=== PATIENT | female | born 1990 | race Two or more races ===

== ENCOUNTER → 2025-08-06 | Outpatient (CLI) | payer BC, SELFPAY ==
[2025-08-06 09:23] LABS: Collection Type, Urine Clean Catch; RBC,Urine 0 /hpf (0-3); WBC,Urine 0 /hpf (0-5)
[2025-08-06 09:55] LABS: Basophils # (Auto) 0.0 Thou/mm3 (0.0-0.2); Basophils % (Auto) 0 % (0-2.5); Eosinophils # (Auto) 0.1 Thou/mm3 (0.0-0.5); Eosinophils % (Auto) 1 % (0-10); Hematocrit 39.3 % (36.0-46.0); Hemoglobin 13.1 g/dL (12.0-16.0); Immature Granulocytes Auto 0.02 Thou/mm3 (0.00-0.00); Lymphocytes # (Auto) 2.5 Thou/mm3 (1.0-4.8); Lymphocytes % (Auto) 31 % (10-50); Mean Corpuscular HGB Conc 33.3 g/dl (31.0-37.0); Mean Corpuscular Hemoglobin 29.9 pg (25.0-35.0); Mean Corpuscular Volume 90 fL (80-100); Monocytes # (Auto) 0.5 Thou/mm3 (0.0-0.8); Monocytes % (Auto) 6 % (0-12); Neutrophils # (Auto) 5.1 Thou/mm3 (1.8-7.7); Neutrophils % (Auto) 62 % (37-80); Nucleated Red Blood Cell # 0.00 Thou/mm3 (0.00-0.00); Nucleated Red Blood Cell % 0 /100 WBC (0); Platelet Count 252 Thou/mm3 (140-440); RDW Standard Deviation 43.8 fL (36.4-46.3); Red Blood Count 4.38 Miln/mm3 (4.00-5.20); White Blood Count 8.3 Thou/mm3 (3.6-11.0)
[2025-08-06 10:04] LABS: Glucose Estimated Average 105 mg/dL (80-131); Hemoglobin A1C 5.3 % Hgb (4.8-6.0)
[2025-08-06 10:08] LABS: Bacteria,Urine Rare; Bilirubin,Urine Negative (Negative); Blood,Urine Negative (Negative); Clarity,Urine Clear (Clear/Hazy); Color,Urine Lt-Yellow (Lt Yel-Yel); Culture Indicated,Urine Not Indicated; Glucose, Urine Negative (Negative); Ketones,Urine Negative (Negative); Leukocyte Esterase,Urine Negative (Negative); Nitrite,Urine Negative (Negative); PH,Urine 6.0 (5.0-7.0); Protein,Urine Negative (Neg - Trace); Specific Gravity,Urine 1.013 (1.001-1.035); Squamous Epithelial Cell,Urine 4 /hpf (0-5); Urobilinogen,Urine Negative mg/dL (0.0-1.0)
[2025-08-06 10:12] LABS: Alanine Aminotransferase 20 U/L (10-49); Albumin, Serum 4.6 gm/dL (3.5-5.0); Albumin/Globulin Ratio 1.6 (1.2-2.2); Alkaline Phosphatase 67 U/L (46-116); Anion Gap 10 (7-16); Aspartate Amino Transferase 18 U/L (0-34); BUN/Creatinine Ratio 13 Ratio (12-20); Bilirubin,Total 0.5 mg/dL (0.3-1.2); Blood Urea Nitrogen 9 mg/dL (9-23); Calcium 9.6 mg/dL (8.3-10.6); Calcium (Corrected) 9.6 mg/dL (8.5-10.1); Carbon Dioxide 26.3 mMol/L (20.0-31.0); Cardiac Risk Estimate 3.0 RATIO (3.7-5.6); Chloride 103 mMol/L (98-107); Cholesterol 145 mg/dL (132-200); Creatinine (Component) 0.7 mg/dL (0.6-1.3); Globulin 2.8 gm/dL (2.3-3.5); Glucose 84 mg/dL (74-106); HDL Cholesterol 49 mg/dL (40-60); LDL Cholesterol,Calculated 78 mg/dL (0-130); Osmolality,Calculated 275 (275-295); Potassium 4.1 mMol/L (3.4-5.1); Sodium 139 mMol/L (136-145); Thyroid Stimulating Hormone 2.42 uIU/mL (0.55-4.78); Total Protein 7.4 gm/dL (5.7-8.2); Triglycerides 91 mg/dL (30-150); eGFR > 60 See Note
[2025-08-06 10:16] LABS: Vitamin B12 710 pg/mL (211-911); Vitamin D 25 Hydroxy Total 37.4 ng/mL (7.3-40.2)
== END | disposition home or self-care (01) ==
LOC: COPL 08:49
PROVIDERS: PCP Nurse Practitioner Family; Referring Provider Nurse Practitioner Family; Visit Provider Nurse Practitioner Family
DX: Z00.00 Encounter for general adult medical examination without abnormal findings (principal); D51.9 Vitamin B12 deficiency anemia, unspecified; E55.9 Vitamin D deficiency, unspecified
CPT/HCPCS: 36415; 80053; 80061; 81001; 82306; 82607; 83036; 84443; 85025

== ENCOUNTER 2025-10-14 08:41 | Inpatient (IN) | payer BC, SELFPAY ==
[2025-10-14 09:01] VITALS: BP 111/61; PULSE 66; RESP 18; TEMP 36.8; O2SAT 97; BMI 37.0
[2025-10-14 09:50] LABS: Lactate (Lactic Acid) 0.9 mMol/L (0.4-2.0)
[2025-10-14 09:51] LABS: Basophils # (Auto) 0.0 Thou/mm3 (0.0-0.2); Basophils % (Auto) 0 % (0-2.5); Eosinophils # (Auto) 0.2 Thou/mm3 (0.0-0.5); Eosinophils % (Auto) 2 % (0-10); Hematocrit 39.0 % (36.0-46.0); Hemoglobin 12.8 g/dL (12.0-16.0); Immature Granulocytes Auto 0.03 Thou/mm3 (0.00-0.00); Lymphocytes # (Auto) 2.7 Thou/mm3 (1.0-4.8); Lymphocytes % (Auto) 25 % (10-50); Mean Corpuscular HGB Conc 32.8 g/dl (31.0-37.0); Mean Corpuscular Hemoglobin 30.0 pg (25.0-35.0); Mean Corpuscular Volume 92 fL (80-100); Monocytes # (Auto) 0.6 Thou/mm3 (0.0-0.8); Monocytes % (Auto) 6 % (0-12); Neutrophils # (Auto) 7.2 Thou/mm3 (1.8-7.7); Neutrophils % (Auto) 67 % (37-80); Nucleated Red Blood Cell # 0.00 Thou/mm3 (0.00-0.00); Nucleated Red Blood Cell % 0 /100 WBC (0); Platelet Count 300 Thou/mm3 (140-440); RDW Standard Deviation 44.2 fL (36.4-46.3); Red Blood Count 4.26 Miln/mm3 (4.00-5.20); White Blood Count 10.8 Thou/mm3 (3.6-11.0)
[2025-10-14 10:13] LABS: Alanine Aminotransferase 13 U/L (10-49); Albumin, Serum 4.5 gm/dL (3.5-5.0); Albumin/Globulin Ratio 1.7 (1.2-2.2); Alkaline Phosphatase 64 U/L (46-116); Anion Gap 10 (7-16); Aspartate Amino Transferase 17 U/L (0-34); BUN/Creatinine Ratio 15 Ratio (12-20); Bilirubin,Total 0.4 mg/dL (0.3-1.2); Blood Urea Nitrogen 12 mg/dL (9-23); Calcium 9.1 mg/dL (8.3-10.6); Calcium (Corrected) 9.1 mg/dL (8.5-10.1); Carbon Dioxide 24.4 mMol/L (20.0-31.0); Chloride 107 mMol/L (98-107); Creatinine (Component) 0.8 mg/dL (0.6-1.3); Estimated Creatinine Clearance 108.5 mL/min (>60); Globulin 2.7 gm/dL (2.3-3.5); Glucose 101 mg/dL (74-106); Osmolality,Calculated 280 (275-295); Potassium 4.4 mMol/L (3.4-5.1); Sodium 141 mMol/L (136-145); Total Protein 7.2 gm/dL (5.7-8.2); eGFR > 60 See Note
--- NOTE | 2025-10-14 10:48 | EDNOTE_ITS ---
ED General RME/HPI General Chief complaint: General Adult/Misc Complain Stated complaint: REDNESS TO L) BREAST, FEVER Time Seen by Provider: 10/14/25 08:59 Arrival date/time: 10/14/25 08:41 RME / HPI RME / HPI narrative: 35-year-old female presents with a left breast abscess persisting for approximately 3 weeks without improvement. Over the past 1 week, she has experienced chills, low-grade fevers, and mild body aches, with chills con tinuing. She denies other acute symptoms. Prior to arrival, she was treated with oral trimethoprim-sulfamethoxazole for 1 week without improvement, followed by intramuscular ceftriaxone initiated 3 days ago and cephalexin started yesterday. She was sent for further evaluation due to lack of response to outpatient oral antibiotics. Related Data Home Medications ?Medication ?Instructions ?Recorded ?Confirmed vit no.95-ferrous 1 tab PO QDAY 09/06/2409/26 fumarate 28 mg-folic acid 800 mcg tablet () Previous Rx's ?Medication ?Instructions ?Recorded docusate sodium 100 mg capsule 100 mg PO BID #60 caps 10/12/24 (Colace) ibuprofen 800 mg tablet 800 mg PO Q6H PRN pain #120 tabs 10/12/24 lanolin 50 % topical ointment 1 applic topical TID PRN skin 10/12/24 irritation #15 tubes Allergies Allergy/AdvReac Type Severity Reaction Status Date / Time piperacillin (From Zosyn) Allergy Mild rash Verified 10/14/25 14:38 tazobactam (From Zosyn) Allergy Mild rash Verified 10/14/25 14:38 Review of Systems Review of Systems Systems Reviewed: All systems reviewed, normal except as documented Past Medical History Past Medical History GASTROINTESTINAL: Positive Gastrointestinal Disorders, Gall Bladder Disease and Obesity REPRODUCTIVE: Positive Previous Pregnancies (X3) HEMATOLOGIC: Positive Anemia (DURING THIS , TAKES PO IRON.) OTHER HISTORY: Positive Hospitalization and Chicken Pox Family History FAMILY HISTORY: Positive Family Cardiac Disorders (SISTER AND MOTHER (HTN)) and Family Surgery (MOTHER,SISTER,FATHER) Social History SMOKING STATUS: Never smoker SECOND HAND EXPOSURE: No ED Exam Narrative Physical exam: General: Not toxic in appearance. Eyes: Appear normal with no scleral icterus. HENT: Normocephalic, atraumatic. Neck: Atraumatic, supple. Cardiac: Regular rate and rhythm, no murmurs. Respiratory: Lungs clear to auscultation bilaterally. Skin: Left breast with abscess at areola level and adjacent area at 3 o'clock position; fluctuance and induration; erythema extending approximately 5?7 cm. Psychological: Cooperative and participatory with examination. Course Course Course Narrative: 1120h: Spoke w Dr. Vieira (surgery) regarding pt for consult. He will see pt in ED. 1152h: Dr. Vieira evaluated the patient in the ED. He recommends admission and IV abx. He plans to drain after patient has received antibiotics, most likley tomorrow. 1210h: I spoke with hospitalist team B for admission. Quality Measures none Orders Category Date Time Status Insert IV NOW Care 10/14/25 09:31 Active US breast LT complete Stat Exams 10/14/25 12:05 Completed CBC Stat Lab 10/14/25 09:43 Completed CMP [Comprehensive Metabolic Panel] Stat Lab 10/14/25 09:43 Completed Lactate (Lactic Acid) Stat Lab 10/14/25 09:43 Completed cefTRIAXone [Rocephin] 2 gm Med 10/14/25 12:10 Discontinued SODIUM CHLORIDE 0.9% (Popper) [Ns 0.9% (P)] 50 ml IV X1 Vital Signs Vital signs: Vital Signs Temperature 98.2 F 10/14/25 09:01 Pulse Rate 66 10/14/25 09:01 Respiratory Rate 18 10/14/25 09:01 Blood Pressure 111/61 10/14/25 09:01 Pulse Oximetry (%) 97 10/14/25 09:01 Oxygen Delivery Method Room Air 10/14/25 09:01 Pulse ox is 97% on room air which is adequate. Discharge Plan Plan Patient Disposition: Admit Acute Care w/in Hospital Problem List Clinical Impression: Breast abscess MDM Narrative MDM hospital course (for use when minimal MDM required): Alona Hu am scribing for and in the presence of Dr. Medley. Clinical Information Provided by: patient Medical Records reviewed [facility] [place] Meds/Rx considered, not ordered None Labs/Rad/Tests considered, not ordered None Chronic Illness/Social Conditions which may negatively complicate care or outcome(s)-explain: None or not applicable EKG EKG not done Labs Labs: see narrative above Imaging Imaging interpretation: none Medication Administration(s) Medication Administration History Acetaminophen (Acetaminophen 325 Mg Tablet) 650 mg PO Q6H PRN PRN Reason: Fever >100.4 and Pain 1-3 Stop: 11/13/25 13:20 Vancomycin HCl/Dextrose (Vancomycin/D5w 1500 Mg Ivpb) 300 mls @ 300 mls/hr IV Q12HR@1000,2200 MINDY; Protocol Stop: 10/21/25 21:59 Clindamycin/Sodium Chloride (Cleocin/Ns Ivpb) 600 mg in 50 mls @ 100 mls/hr IV Q8HR MINDY Stop: 10/21/25 15:17 Last Admin: 10/14/25 16:20 Dose: 100 mls/hr Documented By: DRE Oxycodone/Acetaminophen (Oxycodone/Apap 5/325 Tablet) 1 tab PO Q6H PRN PRN Reason: PAIN SCALE 4-10(Mod-Sev Stop: 10/19/25 13:20 Pharmacy Consult (Vancomycin Pharmacy To Dose 1 Each Each) 1 each IV QDAY MINDY Stop: 11/13/25 13:29 Last Admin: 10/14/25 14:47 Dose: Not Given Documented By: MG Non-Admin Reason: pharmacy Sennosides (Senna Tablet) 1 tab PO QDAY PRN; Protocol PRN Reason: constipation Stop: 11/13/25 13:20 Discontinued Medications Diphenhydramine HCl (Diphenhydramine Inj 50 Mg/Ml Vial) 12.5 mg IVP X1 ONE Stop: 10/14/25 14:35 Last Admin: 10/14/25 14:39 Dose: 12.5 mg Documented By: JACLYN Ceftriaxone Sodium 2 gm/ (Sodium Chloride) 50 mls @ 100 mls/hr IV X1 ONE Stop: 10/14/25 12:39 Last Infusion: 10/14/25 13:22 Dose: Infused Documented By: Admin: 10/14/25 12:37 Dose: 100 mls/hr Documented By: JACLYN Piperacillin Sod/Tazobactam (Sod 4.5 gm/ Sodium Chloride) 100 mls @ 200 mls/hr IV Q8HR MINDY; Protocol Stop: 10/21/25 13:59 Last Infusion: 10/14/25 14:44 Dose: 0 mls/hr Documented By: Admin: 10/14/25 14:14 Dose: 200 mls/hr Documented By: JACLYN Vancomycin/Sodium Chloride (Vancomycin/Ns 1 Gm Ivpb) 200 mls @ 200 mls/hr IV X1 MINDY Stop: 10/14/25 15:30 See above Diagnosis Diagnoses ruled out and/or further discussions: Breast abscess
[2025-10-14 10:52] VITALS: BP 117/79; PULSE 70; RESP 18; TEMP 36.7; O2SAT 98
--- NOTE | 2025-10-14 12:00 | PD.SURCONS ---
HPI Consult details Consult date: 10/14/25 Reason for consultation narrative: The patient was seen in consultation because of abscess over the left breast History of present illness: History of present illness revealed that the patient developed this swelling about 3 weeks ago and it was diagnosed as an abscess and given antibiotics first with Bactrim and then with Keflex. For the past 3 days patient has been receiving intramuscular Rocephin. According to the patient it has slowed down the redness over the past. But the patient still has low-grade fever and pain and has started draining some of the nipple area. Patient denies having any such problem in the past except for years ago she had an infection on the left side of the breast which was treated with packing. She denies any major medical illness or immunosuppression. Patient has 3 children 100% is not lactating. 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 Past Medical History Past Medical History NEUROLOGIC: Negative Neurological Disorders or Seizures CARDIAC: Negative Cardiac Disorders, Congestive Heart Failure, Edema, Cellulitis or Varicose Veins RESPIRATORY: Negative Chronic Obstructive Pulmonary Disease (COPD) or Tuberculosis GASTROINTESTINAL: Positive Gastrointestinal Disorders, Gall Bladder Disease and Obesity; Negative Hepatitis GENITOURINARY: Negative Genitourinary Disorders or Renal Disease REPRODUCTIVE: Positive Previous Pregnancies (X3); Negative Endometriosis, Genital Herpes, Gonorrhea, Pelvic Inflammatory Disease, Syphilis or Uterine Prolapse MUSCULOSKELETAL: Negative Musculoskeletal Disorders ENDOCRINE: Negative Endocrine Disorders, Diabetes Mellitus Type 1 or Diabetes Mellitus Type 2 HEMATOLOGIC: Positive Anemia (DURING THIS , TAKES PO IRON.); Negative Blood Disorders OTHER HISTORY: Positive Hospitalization and Chicken Pox; Negative Autoimmune Disease, Shingles, Falls, Blood Transfusions, Blood Transfusion Reaction, Anesthesia Reactions, Organ Transplant, Chemotherapy, Radiation Therapy, Hyperbaric Therapy, MRSA, VRSA, Human Immunodeficiency Virus (HIV), Measles, Mumps, Rubella ([place]an Measles), Pertussis, Clostridium Difficile or Cancer Family History FAMILY HISTORY: Positive Family Cardiac Disorders (SISTER AND MOTHER (HTN)) and Family Surgery (MOTHER,SISTER,FATHER); Negative Family Psychiatric Problems, Family Respiratory Disorders, Family Gastrointestinal Problems, Family Cancer or Family Anesthesia Reaction Surgical History SURGICAL: Negative Pacemaker, Section or Organ Transplant Social History SMOKING STATUS: Never smoker SECOND HAND EXPOSURE: No Meds Home Medications and Allergies Home Medications ?Medication ?Instructions ?Recorded ?Confirmed ?Type vit no.95-ferrous 1 tab PO QDAY 09/06/24 10/12/24 History fumarate 28 mg-folic acid 800 mcg tablet () Allergies Allergy/AdvReac Type Severity Reaction Status Date / Time No Known Allergies Allergy Verified 10/14/25 08:46 Exam Vital Signs Temp Pulse Resp BP Pulse Ox O2 Del Method 98.1 F 70 18 117/79 98 Room Air 10/14/25 10:52 10/14/25 10:52 10/14/25 10:52 10/14/25 10:52 10/14/25 10:52 10/14/25 10:52 Narrative Exam Physical examination revealed a slightly white female who is 5 feet 3 inches tall weighing 209 pounds. Her vital signs are normal Routine Chest/Breast/Axilla Exam Comments: Examination of the breast showed large breasts on both sides. On the left side patient has diffuse cellulitis all around the areola as well as in the posterior of the breast in the upper portion. Patient also has a fluctuation at the areola on the left side. She said she started draining some on the right side of the nipple. Patient has hidradenitis of the left axilla and which has been treated with antibiotic in the past. Routine Respiratory Exam Comments: Normal limits Routine Cardiovascular Exam Comments: Within normal limits Routine Abdominal Exam Comments: Deferred Routine Rectal Exam Comments: Deferred Results Results: Laboratory Laboratory Narrative: Patient's laboratory workup showed no leukocytosis Assessment & Plan Additional Assessment Additional comments: Pression: Left breast abscess not responding to outpatient treatment Mild obesity Plan Plan: I advised the patient to undergo IV antibiotics and then may require incision and drainage by open surgery. We shall order an ultrasound to find out the extent of the abscess. With an IV antibiotics the cellulitis will improve and it may localized to just an abscess which could be even be aspirated rather than drained by surgery.
--- NOTE | 2025-10-14 12:05 | XR_ITS ---
Examination: Breast ultrasound, unilateral, left Date and time of exam: October 14, 2025, 1225 hours INDICATIONS: Left retroareolar breast abscess 3 weeks post antibiotic therapy, retroareolar nodule 1.5 x 1.8 x 1.0 cm on breast sonogram October 17, 2011 Technique: Real-time holly scale ultrasonographic imaging performed left breast including all 4 quadrants as well as nipple retroareolar and axillary region. Findings: Retroareolar 3:00 hypoechoic mass, 3.8 x 1.9 x 4.1 cm IMPRESSION: Findings most consistent with large breast abscess as above Follow-up sonographic images strongly recommended to document resolution
[2025-10-14] MEDS: cefTRIAXone 2 GM in SODIUM CHLORIDE 0.9% (Popper) 50 ML IV (12:37)
--- NOTE | 2025-10-14 13:40 | ESHP_ITS ---
<Statement entered by Ramakrishna Foster MD - 10/15/25 05:50> Patient was seen and examined at bedside. I agree on the assessment and plan on this note as documented by resident Dr Noreen Bobby DO PGY1. 35-year-old female with past medical history of hidradenitis suppurativa with self resolving abscesses in the past and depression who presented to [facility] emergency department with a chief complaint of left breast abscess which is fluctuant. Patient does report history of multiple small abscesses in the past requiring no surgical drainage. Only other home medication reported is sertraline and ibuprofen as needed, denies any trauma to the area. Patient was evaluated by general surgery who is planning source control with I&D versus discussion with interventional radiology for drainage. Ultrasound did show greater alveolar hypoechoic 3.8 and 1.9 to 4.1 cm abscess. Patient failed outpatient antibiotic therapy with Rocephin Bactrim and Keflex, we will start patient on clindamycin, initially Zosyn was started however patient had rash for which patient was given Benadryl. Will follow-up with general surgery. Case discussed with attending Dr. Micheline Foster MD PGY-2 Documentation for date of: 10/14/25 HPI History of Present Illness History of present illness: A 35-year-old female with past medical history of Hidradenitis suppurativa presents with left breast abscess x 3 weeks on antibiotics without improvement. Admitted for left breast abscess. Patient reported left abscess for the past 3 weeks, was treated with Bactrim for 1 week, Rocephin for 4 days, and Keflex for 1 day without improvement. Reported fever at home to 101. ?Patient follow-up outpatient with her doctor who suggested patient coming into hospital due to redness spread above marker.? Patient reported history of abscess on the same breast 6 years ago, no antibiotics needed, abscess drained and resolved on its own. Reported purulent drainage from small abscess on areolar, no drainage on big abscess.? Patient?s last time breast-feeding was 7 months ago, no problems at that time.? Reported no new aggravation, trauma to the breast. Denied sweat, antibiotics reaction.? Denied tobacco, drug use. ?Admitted to social alcohol use. ?No family history of breast cancer, cervical cancer in sister. ?No past surgical history. ED: Labs: WBC 10.8 within normal limit Imaging: Breast US showed Retroareolar 3:00 hypoechoic mass, 3.8 x 1.9 x 4.1 cm Meds: Rocephin 2 g Consult: Surgery, Dr. Carson, consulted, appreciate recs. Review of Systems Review of Systems Systems Reviewed: All systems reviewed, normal except as documented Narrative Review of Systems: GENERAL APPEARANCE: awake and oriented x 3, well-developed, well-nourished HEENT: Normocephalic, atraumatic; pupils equal, round, reactive to light; EOMI; mucous membranes pink, moist; oropharynx clear NECK: Supple, large neck circumference LUNGS: Clear to auscultation bilaterally, breath sound equal bilaterally HEART: Tachycardia; normal S1, S2; no murmur ABDOMEN: No tenderness to palpation; normal BS; soft, no guarding, no rebound. NEUROLOGIC: awake; alert and oriented x3; cranial nerves II-XII grossly intact; no focal sensory or motor deficits PSYCHIATRIC: appropriate mood and affect SKIN: 3:00 2cm from left areolar 3 x 4 cm fluctuant mass with scab over, no drainage, 11:00 on left areolar 0.5 x 0.5 cm fluctuant mass, no drainage. ?Erythema and induration 20 x 15 cm lateral to left areolar, peau d'orange with some peeling of the skin, tenderness to palpation.? Multiple hyperpigmented scars on left armpit and 2 hyperpigmented scars under left breast. ?No rash at the breast fold. Exam Vital Signs Temp Pulse Resp BP Pulse Ox O2 Del Method 98.1 F 70 18 117/79 98 Room Air 10/14/25 10:52 10/14/25 10:52 10/14/25 10:52 10/14/25 10:52 10/14/25 10:52 10/14/25 10:52 Narrative Exam GENERAL APPEARANCE: awake and oriented x 3, well-developed, well-nourished HEENT: Normocephalic, atraumatic; pupils equal, round, reactive to light; EOMI; mucous membranes pink, moist; oropharynx clear NECK: Supple, large neck circumference LUNGS: Clear to auscultation bilaterally, breath sound equal bilaterally HEART: Tachycardia; normal S1, S2; no murmur ABDOMEN: No tenderness to palpation; normal BS; soft, no guarding, no rebound. NEUROLOGIC: awake; alert and oriented x3; cranial nerves II-XII grossly intact; no focal sensory or motor deficits PSYCHIATRIC: appropriate mood and affect SKIN: 3:00 2cm from left areolar 3 x 4 cm fluctuant mass with scab over, no drainage, 11:00 on left areolar 0.5 x 0.5 cm fluctuant mass, no drainage. ?Erythema and induration 20 x 15 cm lateral to left areolar, peau d'orange with some peeling of the skin, tenderness to palpation.? Multiple hyperpigmented scars on left armpit and 2 hyperpigmented scars under left breast. ?No rash at the breast fold. Results: Labs 10/15/25 04:24 10/15/25 04:24 Labs: Short CBC 10/14/25 Range/Units 09:43 WBC 10.8 (3.6-11.0) Thou/mm3 Hgb 12.8 (12.0-16.0) g/dL Hct 39.0 (36.0-46.0) % Plt Count 300 (140-440) Thou/mm3 BMP 10/14/25 09:43 Sodium 141 Potassium 4.4 Chloride 107 Carbon Dioxide 24.4 BUN 12 Creatinine 0.8 Glucose 101 Calcium 9.1 Liver Function 10/14/25 Range/Units 09:43 Total Bilirubin 0.4 (0.3-1.2) mg/dL AST 17 (0-34) U/L ALT 13 (10-49) U/L Alkaline Phosphatase 64 (46-116) U/L Albumin 4.5 (3.5-5.0) gm/dL Quality Measures Quality Measures VTE prophylaxis and none Medications Home Medications and Allergies Home Medications ?Medication ?Instructions ?Recorded ?Confirmed ?Type sertraline 50 mg tablet 50 mg PO HS 10/14/25 5 History Allergies Allergy/AdvReac Type Severity Reaction Status Date / Time hydromorphone (From Dilaudid) Allergy Intermediate Hives Verified 10/15/25 11:30 piperacillin (From Zosyn) Allergy Mild rash Verified 10/14/25 14:38 tazobactam (From Zosyn) Allergy Mild rash Verified 10/14/25 14:38 Visit Medications Acetaminophen (Acetaminophen 325 Mg Tablet) 650 mg PO Q6H PRN PRN Reason: Fever >100.4 and Pain 1-3 Stop: 11/13/25 13:20 Piperacillin Sod/Tazobactam (Sod 4.5 gm/ Sodium Chloride) 100 mls @ 200 mls/hr IV Q8HR MINDY; Protocol Stop: 10/21/25 13:59 Oxycodone/Acetaminophen (Oxycodone/Apap 5/325 Tablet) 1 tab PO Q6H PRN PRN Reason: PAIN SCALE 4-10(Mod-Sev Stop: 10/19/25 13:20 Pharmacy Consult (Vancomycin Pharmacy To Dose 1 Each Each) 1 each IV QDAY MINDY Stop: 11/13/25 13:29 Sennosides (Senna Tablet) 1 tab PO QDAY PRN; Protocol PRN Reason: constipation Stop: 11/13/25 13:20 Discontinued Medications Ceftriaxone Sodium 2 gm/ (Sodium Chloride) 50 mls @ 100 mls/hr IV X1 ONE Stop: 10/14/25 12:39 Last Infusion: 10/14/25 13:22 Dose: Infused Assessment & Plan Plan A 35-year-old female with past medical history of Hidradenitis suppurativa presents with left breast abscess x 3 weeks on antibiotics (Bactrim for 1 week, Rocephin for 4 days, and Keflex for 1 day) without improvement. Admitted for left breast abscess. History of abscess on the same breast 6 years ago, no antibiotics needed, abscess drained and resolved on its own. ?Reported purulent drainage from small abscess on areolar, no drainage on big abscess.? No new aggravation, trauma to the breast. # Left Breast Abscess # Hidradenitis suppurativa #History of left breast abscess #Outpatient treatment failure Left breast abscess x 3 weeks on antibiotics (Bactrim for 1 week, Rocephin for 4 days, and Keflex for 1 day) without improvement. Breast US showed Retroareolar 3:00 hypoechoic mass, 3.8 x 1.9 x 4.1 cm. No leukocytosis. Remote fever of 101 at home. Had a reaction with Zosyn in ED, hives. Plan: - Pending blood culture - Start Vancomycin - Discontinue Zosyn - Start Clindamycin - Consult surgery, Dr. Carson, appreciate recs - Plan for I&D and wound culture - Adjust antibiotics according to wound culture Health Maintenance: Code status: Full DVT prophylaxis: None GI prophylaxis: None Diet: NPO Herrera: None Lines: PIV Supplemental O2: None Disposition: [facility] bed Assessment and plan discussed with my attending physician Dr. Avery and Dr. Foster (PGY-2). Dr. Bobby (PGY-1) ? residential insurance inspector Attending Provider Attestation/Addendum I have seen and examined the patient. I was physically present for the ta portions of the services provided including history, physical exam, diagnosis, treatment plans and orders. I agree with assessment and plan of care as documented by residents. After examination of the patient and review of the clinical data I feel that this patient needs admission to the hospital for further treatment/evaluation. Patient is a 35 years old female with past medical history of hidradenitis suppurativa and depression who presented to the ED with complaint of left breast abscess for 3 weeks. Patient has received outpatient antibiotic therapy with Bactrim, Keflex and Rocephin. The antibiotic therapy has not provided her relief and her swelling and pain has been worsening. Patient had stopped breast-feeding last 7 months ago without issues. States that she has some purulent drainage and a small amount from smaller abscess around areola. In the ED, vital signs and lab results were within normal limits. Has redness around left breast with fluctuant mass, warmth, erythema and induration present around. Also noted to have hyperpigmented scars from previous lesions secondary to hidradenitis suppurativa. Patient was seen by general surgery in the ED, recommended IV antibiotics and evaluation for possible I&D. We will admit the patient for management of left breast abscess in setting of outpatient treatment failure. Try to start patient on broad-spectrum IV antibiotics, patient became allergic to Zosyn with rashes. We will start her on clindamycin instead. We will obtain blood culture. We will keep her n.p.o. after midnight in anticipation of I&D tomorrow. Even though this this note was carefully revised there may still be minor errors in gear hobber operator due to voice recognition software. Micheline Avery MD
--- NOTE | 2025-10-14 14:04 | PC.SS ---
This EXCAVATOR OPERATOR research program intern went to patient bedside and completed initial assessment. Patient is alert and oriented x3, she was able to complete initial assessment. Patient is a full code with no POA or advanced directive in place. Patient was able to confirm home address [address] [place] [address] and telephone number [phone], her emergency contact and surrogate decision maker is her spouse Kyle Fuentes [phone]. Patient primary physician is Dr. Rashmi Castañeda at Dr. Ludmila De Leon's office in [place]. Patient uses [facility] [address] as her pharmacy. Patient is currently employed and able to complete all ADL's at home with no difficulty. She denies needing any DME when she returns home. Patient states she will need MD note to excuse her from work. Patient will transport herself home once she is discharged.
--- NOTE | 2025-10-14 14:10 | PC.CC ---
1410-Pt is requesting note for work purposes. Assigned RN Rashmi is aware of the request.
[2025-10-14] MEDS: PIPER/TAZO INJ 4.5 GM in SODIUM CHLORIDE 0.9% (POP) 100 ML IV (14:14)
[2025-10-14 14:31] VITALS: PULSE 80; RESP 97
--- NOTE | 2025-10-14 14:34 | PC.NURSE ---
Spoke to Provider Cristian. pt getting hives around china and body starting to get inchy and throat feels sratchy after starting zosyn. provider will order benadryl and to hold off on vanco for now
[2025-10-14] MEDS: CLINDAMYCIN/NS 600 MG IVPB 600 MG/50 ML BAG 100 MG IV ×2 (16:20→21:02)
[2025-10-14 16:35] VITALS: BP 124/66; PULSE 66; RESP 16; TEMP 36.2; O2SAT 96
[2025-10-14 16:45] VITALS: BMI 202.3
[2025-10-14 20:00] VITALS: BP 111/61; PULSE 80; RESP 16; TEMP 36.6; O2SAT 98
[2025-10-14 20:26] VITALS: BMI 34.7
[2025-10-14] MEDS: SERTRALINE HCL 25 MG TABLET 50 MG PO (21:03)
[2025-10-14 23:45] VITALS: PULSE 67; RESP 20; RESP 97
[2025-10-15] VITALS (14 sets, daily range): BP systolic 93–133; BP diastolic 60–80; PULSE 60–102; RESP 14–97; TEMP 36.1–36.5; O2SAT 94–99
[2025-10-15] MEDS: CLINDAMYCIN/NS 600 MG IVPB 600 MG/50 ML BAG 100 MG IV ×3 (05:20→21:26)
[2025-10-15 05:48] LABS: INR 1.0 (0.9-1.3); Partial Thromboplastin Time 29.2 Seconds (22.0-36.0); Prothrombin Time 10.9 Seconds (9.0-12.2)
[2025-10-15 05:50] LABS: Basophils # (Auto) 0.0 Thou/mm3 (0.0-0.2); Basophils % (Auto) 0 % (0-2.5); Eosinophils # (Auto) 0.2 Thou/mm3 (0.0-0.5); Eosinophils % (Auto) 2 % (0-10); Hematocrit 37.4 % (36.0-46.0); Hemoglobin 12.1 g/dL (12.0-16.0); Immature Granulocytes Auto 0.05 Thou/mm3 (0.00-0.00); Lymphocytes # (Auto) 2.1 Thou/mm3 (1.0-4.8); Lymphocytes % (Auto) 21 % (10-50); Mean Corpuscular HGB Conc 32.4 g/dl (31.0-37.0); Mean Corpuscular Hemoglobin 29.8 pg (25.0-35.0); Mean Corpuscular Volume 92 fL (80-100); Monocytes # (Auto) 0.7 Thou/mm3 (0.0-0.8); Monocytes % (Auto) 7 % (0-12); Neutrophils # (Auto) 6.8 Thou/mm3 (1.8-7.7); Neutrophils % (Auto) 69 % (37-80); Nucleated Red Blood Cell # 0.00 Thou/mm3 (0.00-0.00); Nucleated Red Blood Cell % 0 /100 WBC (0); Platelet Count 274 Thou/mm3 (140-440); RDW Standard Deviation 43.2 fL (36.4-46.3); Red Blood Count 4.06 Miln/mm3 (4.00-5.20); White Blood Count 9.8 Thou/mm3 (3.6-11.0)
[2025-10-15 05:55] LABS: Alanine Aminotransferase 15 U/L (10-49); Albumin, Serum 4.0 gm/dL (3.5-5.0); Albumin/Globulin Ratio 1.6 (1.2-2.2); Alkaline Phosphatase 59 U/L (46-116); Anion Gap 8 (7-16); Aspartate Amino Transferase 17 U/L (0-34); BUN/Creatinine Ratio 16 Ratio (12-20); Bilirubin,Total 0.4 mg/dL (0.3-1.2); Blood Urea Nitrogen 11 mg/dL (9-23); Calcium 8.2 mg/dL (8.3-10.6); Calcium (Corrected) 8.2 mg/dL (8.5-10.1); Carbon Dioxide 27.4 mMol/L (20.0-31.0); Chloride 106 mMol/L (98-107); Creatinine (Component) 0.7 mg/dL (0.6-1.3); Estimated Creatinine Clearance 119.8 mL/min (>60); Globulin 2.5 gm/dL (2.3-3.5); Glucose 107 mg/dL (74-106); Osmolality,Calculated 280 (275-295); Potassium 4.6 mMol/L (3.4-5.1); Sodium 141 mMol/L (136-145); Total Protein 6.5 gm/dL (5.7-8.2); eGFR > 60 See Note
[2025-10-15] MEDS: HYDROmorphone INJ 2 MG/ML VIAL 1 MG IVP (09:45)
--- NOTE | 2025-10-15 11:30 | PC.NURSE ---
Called to Dr. Avery and made aware that pt. appears to be experiencing an allergic reaction after dilaudid was given. comes to bedside and orders IV benadryl 50 mg IV x1. Pt. denies swelling to mouth and/or throat, denies dry cough. Pt. complains primarily of ithciness with redness and hives generalized. Pt. given IV benardyl. Surgery RN made aware of new allergy and allergy added to pt. chart.
--- NOTE | 2025-10-15 13:35 | PC.NURSE ---
Dr. Bobby aware pt. does not have HCG level and due to age pt. needs this done before surgery. orders test
[2025-10-15 13:49] LABS: HCG,Qualitative Serum Negative
--- NOTE | 2025-10-15 14:07 | ESPR_ITS ---
<Statement entered by Fransico Zurita MD - 10/15/25 18:56> Patient seen and examined at bedside. I discussed and supervised with the resident intern physician who took care of this patient. I personally saw and examined the patient. I agree with most of the assessment and plan. Abscess ruptured this morning. Patient taken for I&D. Gave dilauded, allergic reaction with hives and itching over face, improved with benadryl. Plan of care discussed with attending Dr. Avery. Fransico Zurita MD PGY-2 Documentation for date of: 10/15/25 Subjective Subjective Interval history: Patient reported ruptured her abscess in the shower this morning with mucousy, whitish-green purulent discharge. ?Wound care nurse by bedside.? Abscess drain serosanguineous with minimal purulent discharge. ?Wound culture obtained. Surgery, Dr. Carson, by bedside.? Plan to go for OR I&D this afternoon. Of note, patient had an allergic reaction to Dilaudid, hives and itchiness in neck and face.? Given Benadryl IV, resolved. Exam Vital Signs Temp Pulse Resp BP Pulse Ox O2 Del Method 97.1 F 84 18 133/75 H 99 Room Air 10/15/25 11:53 10/15/25 11:53 10/15/25 11:53 10/15/25 11:53 10/15/25 11:53 10/15/25 11:53 Narrative Exam GENERAL APPEARANCE: awake and oriented x 3, well-developed, well-nourished HEENT: Normocephalic, atraumatic; pupils equal, round, reactive to light; EOMI; mucous membranes pink, moist; oropharynx clear NECK: Supple, large neck circumference LUNGS: Clear to auscultation bilaterally, breath sound equal bilaterally HEART: Tachycardia; normal S1, S2; no murmur ABDOMEN: No tenderness to palpation; normal BS; soft, no guarding, no rebound. NEUROLOGIC: awake; alert and oriented x3; cranial nerves II-XII grossly intact; no focal sensory or motor deficits PSYCHIATRIC: appropriate mood and affect SKIN: 3:00 2cm from left areolar 3 x 4 cm fluctuant mass with wet scab and serosangunous drainage, 11:00 on left areolar 0.5 x 0.5 cm fluctuant mass, no drainage. ?Erythema and induration 20 x 15 cm lateral to left areolar, peau d'orange with some peeling of the skin, tenderness to palpation.? Multiple hyperpigmented scars on left armpit and 2 hyperpigmented scars under left breast. ?No rash at the breast fold. Objective Labs 10/16/25 04:35 10/16/25 04:35 Labs: Laboratory Results - last 24 hr 10/15/25 04:24 WBC 9.8 RBC 4.06 Hgb 12.1 Hct 37.4 MCV 92 MCH 29.8 MCHC 32.4 RDW Std Deviation 43.2 Plt Count 274 Neut % (Auto) 69 Lymph % (Auto) 21 Luna % (Auto) 7 Eos % (Auto) 2 Baso % (Auto) 0 Neut # (Auto) 6.8 Lymph # (Auto) 2.1 Luna # (Auto) 0.7 Eos # (Auto) 0.2 Baso # (Auto) 0.0 Immature Gran # (Auto) 0.05 H Absolute Nucleated RBC 0.00 Immature Gran % 1 H Nucleated RBC % 0 PT 10.9 INR 1.0 APTT 29.2 Sodium 141 Potassium 4.6 Chloride 106 Carbon Dioxide 27.4 Anion Gap 8 BUN 11 Creatinine 0.7 Estim Creat Clear Calc 119.8 eGFR > 60 BUN/Creatinine Ratio 16 Glucose 107 H Calculated Osmolality 280 Calcium 8.2 L Corrected Calcium 8.2 L Total Bilirubin 0.4 AST 17 ALT 15 Alkaline Phosphatase 59 Total Protein 6.5 Albumin 4.0 D Globulin 2.5 Albumin/Globulin Ratio 1.6 HCG, Qual Negative Quality Measures Quality Measures VTE prophylaxis and none Assessment & Plan Assessment Current Active Medications: Generic Name Dose Route Start Last Admin Trade Name Freq PRN Reason Stop Dose Admin Acetaminophen 650 mg 10/14/25 13:21 Acetaminophen 325 Mg Tablet PO 11/13/25 13:20 Q6H PRN Fever >100.4 and Pain 1-3 Clindamycin/Sodium Chloride 600 mg in 50 mls @ 100 mls/hr 10/14/25 15:18 10/15/25 13:47 Cleocin/Ns Ivpb IV 10/21/25 15:17 100 mls/hr Q8HR MINDY Administration Oxycodone/Acetaminophen 1 tab 10/14/25 13:21 10/14/25 16:32 Oxycodone/Apap 5/325 Tablet PO 10/19/25 13:20 1 tab Q6H PRN Administration PAIN SCALE 4-10(Mod-Sev Sennosides 1 tab 10/14/25 13:21 Senna Tablet PO 11/13/25 13:20 QDAY PRN constipation Protocol Sertraline HCl 50 mg 10/14/25 21:00 10/14/25 21:03 Sertraline Hcl 25 Mg Tablet PO 11/13/25 20:59 50 mg HS MINDY Administration Plan A 35-year-old female with past medical history of Hidradenitis suppurativa presents with left breast abscess x 3 weeks on antibiotics (Bactrim for 1 week, Rocephin for 4 days, and Keflex for 1 day) without improvement. Admitted for left breast abscess. History of abscess on the same breast 6 years ago, no antibiotics needed, abscess drained and resolved on its own. ?Reported purulent drainage from small abscess on areolar, no drainage on big abscess.? No new aggravation, trauma to the breast. # Left Breast Abscess # Hidradenitis suppurativa #History of left breast abscess #Outpatient treatment failure Left breast abscess x 3 weeks on antibiotics (Bactrim for 1 week, Rocephin for 4 days, and Keflex for 1 day) without improvement. Breast US showed Retroareolar 3:00 hypoechoic mass, 3.8 x 1.9 x 4.1 cm. No leukocytosis. Remote fever of 101 at home. Had a reaction with Zosyn in ED, hives. Had a reaction with Dilaudid, hives. Plan: - Pending blood culture - Pending wound culture - Discontinue Vancomycin - Continue Clindamycin - Consult surgery, Dr. Crason, appreciate recs: OR I&D - Adjust antibiotics according to wound culture Health Maintenance: Code status: Full DVT prophylaxis: None GI prophylaxis: None Diet: NPO Herrera: None Lines: PIV Supplemental O2: None Disposition: MedSurg bed Assessment and plan discussed with my attending physician Dr. Avery and Dr. Zurita (PGY-2). Dr. Bobby (PGY-1) ? vice president talent management Attending Provider Attestation/Addendum I have seen and examined the patient. I was physically present for the ta portions of the services provided including history, physical exam, diagnosis, treatment plans and orders. I agree with assessment and plan of care as documented by residents. Even though this this note was carefully revised there may still be minor errors in ramp flight attendant due to voice recognition software. Micheline Avery MD
--- NOTE | 2025-10-15 15:13 | SUR.PHASEI ---
pt received from OR in recovery bay 5. pt asleep but responds to voice, breathing unlabored on room air. v/s stable. pt dressing to left breast cdi, breast binder in place. report received from Ken WATTERS and Dr. Ferris.
--- NOTE | 2025-10-15 15:32 | PD.SUROPNT ---
Date of Procedure 10/15/25 Pre Op Diagnosis Abscess over the left breast Post Op Diagnosis Same Procedure Incision and drainage of the abscess left breast Findings Patient had spontaneous drainage from the areola on the left breast as well as from the nipple. She had considerable amount of cellulitis over the left breast Procedure Description After the patient was brought to the operating room LMA anesthesia was given. Left breast was washed with Betadine solution and draped in a sterile manner. Timeout was performed. Then I made incision over the left nipple where the spontaneous drainage was happening and I enlarged it. Some purulent material was obtained. I introduced a long Nahomi clamp underneath the pleural areolar complex but it did not drain any additional pus. There was a solid component behind the areolar area and I could not drain any pus from the area. Therefore wound was irrigated with saline and then packed with quarter-inch iodoform and fluffs. Dressing was applied with extra-large breast binder. Patient tolerated the procedure well Anesthesia other (General LMA) Pathology / specimen None Estimated Blood Loss 50 Surgeon Cordell Vieira MD Surgical Staff Operation Date: 10/15/25 14:15 <No data on this case meets the specified criteria>
--- NOTE | 2025-10-15 15:55 | SUR.PHASEI ---
pt awake and alert, breathing unlabored on 2l nc. v/s stable. pt dressing to left breast cdi, breast binder in place. report called to Isatu Meza.
[2025-10-15] MEDS: SERTRALINE HCL 25 MG TABLET 50 MG PO (20:13)
[2025-10-15 21:58] LABS: Vancomycin,Trough < 3.0 mcg/mL (5.0-10.0)
[2025-10-16] VITALS (8 sets, daily range): BP systolic 95–157; BP diastolic 60–76; PULSE 59–84; RESP 16–98; TEMP 36.1–36.6; O2SAT 96–99; BMI 34.7
[2025-10-16] MEDS: CLINDAMYCIN/NS 600 MG IVPB 600 MG/50 ML BAG 100 MG IV ×3 (05:16→21:06)
[2025-10-16 05:35] LABS: Basophils # (Auto) 0.0 Thou/mm3 (0.0-0.2); Basophils % (Auto) 0 % (0-2.5); Eosinophils # (Auto) 0.0 Thou/mm3 (0.0-0.5); Eosinophils % (Auto) 0 % (0-10); Hematocrit 36.5 % (36.0-46.0); Hemoglobin 11.8 g/dL (12.0-16.0); Immature Granulocytes Auto 0.04 Thou/mm3 (0.00-0.00); Lymphocytes # (Auto) 1.0 Thou/mm3 (1.0-4.8); Lymphocytes % (Auto) 8 % (10-50); Mean Corpuscular HGB Conc 32.3 g/dl (31.0-37.0); Mean Corpuscular Hemoglobin 29.6 pg (25.0-35.0); Mean Corpuscular Volume 92 fL (80-100); Monocytes # (Auto) 0.3 Thou/mm3 (0.0-0.8); Monocytes % (Auto) 2 % (0-12); Neutrophils # (Auto) 11.7 Thou/mm3 (1.8-7.7); Neutrophils % (Auto) 90 % (37-80); Nucleated Red Blood Cell # 0.00 Thou/mm3 (0.00-0.00); Nucleated Red Blood Cell % 0 /100 WBC (0); Platelet Count 266 Thou/mm3 (140-440); RDW Standard Deviation 42.8 fL (36.4-46.3); Red Blood Count 3.99 Miln/mm3 (4.00-5.20); White Blood Count 13.0 Thou/mm3 (3.6-11.0)
[2025-10-16 06:29] LABS: Alanine Aminotransferase 366 U/L (10-49); Albumin, Serum 4.1 gm/dL (3.5-5.0); Albumin/Globulin Ratio 1.6 (1.2-2.2); Alkaline Phosphatase 98 U/L (46-116); Anion Gap 10 (7-16); Aspartate Amino Transferase 203 U/L (0-34); BUN/Creatinine Ratio 20 Ratio (12-20); Bilirubin,Total 0.3 mg/dL (0.3-1.2); Blood Urea Nitrogen 12 mg/dL (9-23); Calcium 8.4 mg/dL (8.3-10.6); Calcium (Corrected) 8.4 mg/dL (8.5-10.1); Carbon Dioxide 24.5 mMol/L (20.0-31.0); Chloride 107 mMol/L (98-107); Creatinine (Component) 0.6 mg/dL (0.6-1.3); Estimated Creatinine Clearance 139.7 mL/min (>60); Globulin 2.5 gm/dL (2.3-3.5); Glucose 128 mg/dL (74-106); Osmolality,Calculated 282 (275-295); Potassium 4.5 mMol/L (3.4-5.1); Sodium 141 mMol/L (136-145); Total Protein 6.6 gm/dL (5.7-8.2); eGFR > 60 See Note
--- NOTE | 2025-10-16 09:15 | PC.SS ---
Follow up note: On IV antibiotic. Cultures are pending. Pt will return home upon dc.
--- NOTE | 2025-10-16 09:43 | ESPR_ITS ---
Documentation for date of: 10/16/25 Subjective Subjective Brief History: History of present illness revealed that the patient developed this swelling about 3 weeks ago and it was diagnosed as an abscess and given antibiotics first with Bactrim and then with Keflex. For the past 3 days patient has been receiving intramuscular Rocephin. According to the patient it has slowed down the redness over the past. But the patient still has low-grade fever and pain and has started draining some of the nipple area. Patient denies having any such problem in the past except for years ago she had an infection on the left side of the breast which was treated with packing. She denies any major medical illness or immunosuppression. Patient has 3 children 100% is not lactating. 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 There is not much drainage Exam Vital Signs Temp Pulse Resp BP Pulse Ox O2 Del Method O2 Flow Rate 97 F 74 18 152/71 H 96 Room Air 2 10/16/25 07:48 10/16/25 08:15 10/16/25 08:15 10/16/25 07:48 10/16/25 07:48 10/16/25 07:48 10/16/25 04:00 Vital signs are normal Results Results: Laboratory Laboratory Narrative: Laboratory studies show mild leukocytosis probably secondary to surgery Assessment & Plan Assessment Additional comments: Impression: Drainage of the abscess from the left breast Patient still has considerable inflammation of the breast tissue and will require antibiotics for a while Plan Plan: Patient could be discharged with dressing change instructions and antibiotics. I will see the patient in my office on October 26 PROCEDURES: Procedures Incision and drainage of the abscess left breast
--- NOTE | 2025-10-16 10:14 | XR_ITS ---
Examination: Abdomen sonogram, Limited Date and time of exam: October 16, 2025, 1212 hours INDICATIONS: Elevated liver function tests on laboratory examination today. Technique: Real-time holly scale transabdominal sonographic images of the upper abdomen obtained. Findings: Absent gallbladder Normal common bile duct 0.2 cm Pancreatic head 2.5 cm Liver 14.1 cm fatty infiltration no focal liver lesions Normal hepatopetal portal venous flow Patent IVC IMPRESSION: Normal common bile duct Fatty infiltration throughout the liver no focal liver lesions
--- NOTE | 2025-10-16 15:02 | ESPR_ITS ---
<Statement entered by Fransico Zurita MD - 10/16/25 17:37> Patient seen and examined at bedside. I discussed and supervised with the development intern physician who took care of this patient. I personally saw and examined the patient. I agree with most of the assessment and plan. Plan of care discussed with attending Dr. Avery. Fransico Zurita MD PGY-2 Documentation for date of: 10/16/25 Subjective Subjective Interval history: S/p I&D of left breast abscess. Patient felt much better today. Cellulitis significantly improved. Wound with packing with minimal drainage. Dr. Carson cleared for discharge with antibiotics. Pending wound culture and blood culture. Currently on clindamycin. LFT is elevated today. Patient admitted to cholectomy in the past. Denied abdominal or RUQ or epigastric pain. Tolerated food without nausea/vomiting. Plan to trend LFT tomorrow and US if LFT continues to uptrend. Exam Vital Signs Temp Pulse Resp BP Pulse Ox O2 Del Method O2 Flow Rate 97 F 71 18 157/73 H 96 Room Air 2 10/16/25 12:00 10/16/25 12:00 10/16/25 12:00 10/16/25 12:00 10/16/25 12:00 10/16/25 12:00 10/16/25 04:00 Narrative Exam GENERAL APPEARANCE: awake and oriented x 3, well-developed, well-nourished HEENT: Normocephalic, atraumatic; pupils equal, round, reactive to light; EOMI; mucous membranes pink, moist; oropharynx clear NECK: Supple, large neck circumference LUNGS: Clear to auscultation bilaterally, breath sound equal bilaterally HEART: Tachycardia; normal S1, S2; no murmur ABDOMEN: No tenderness to palpation; normal BS; soft, no guarding, no rebound. NEUROLOGIC: awake; alert and oriented x3; cranial nerves II-XII grossly intact; no focal sensory or motor deficits PSYCHIATRIC: appropriate mood and affect SKIN: 3:00 left breast wound with packing, minimal drainage. Mild erythema 10 x 10 cm lateral to left areolar, mild tenderness to palpation.? Multiple hyperpigmented scars on left armpit and 2 hyperpigmented scars under left breast. ?No rash at the breast fold. Objective Labs 10/16/25 04:35 10/16/25 04:35 Labs: Laboratory Results - last 24 hr 10/15/25 10/16/25 21:18 04:35 WBC 13.0 H RBC 3.99 L Hgb 11.8 L Hct 36.5 MCV 92 MCH 29.6 MCHC 32.3 RDW Std Deviation 42.8 Plt Count 266 Neut % (Auto) 90 H Lymph % (Auto) 8 L [place] % (Auto) 2 Eos % (Auto) 0 Baso % (Auto) 0 Neut # (Auto) 11.7 H Lymph # (Auto) 1.0 [place] # (Auto) 0.3 Eos # (Auto) 0.0 Baso # (Auto) 0.0 Immature Gran # (Auto) 0.04 H Absolute Nucleated RBC 0.00 Immature Gran % 0 Nucleated RBC % 0 Sodium 141 Potassium 4.5 Chloride 107 Carbon Dioxide 24.5 Anion Gap 10 BUN 12 Creatinine 0.6 Estim Creat Clear Calc 139.7 eGFR > 60 BUN/Creatinine Ratio 20 Glucose 128 H Calculated Osmolality 282 Calcium 8.4 Corrected Calcium 8.4 L Total Bilirubin 0.3 AST 203 H ALT 366 H Alkaline Phosphatase 98 D Total Protein 6.6 Albumin 4.1 Globulin 2.5 Albumin/Globulin Ratio 1.6 Vancomycin Trough < 3.0 L Quality Measures Quality Measures VTE prophylaxis Assessment & Plan Assessment Current Active Medications: Generic Name Dose Route Start Last Admin Trade Name Freq PRN Reason Stop Dose Admin Acetaminophen 650 mg 10/14/25 13:21 Acetaminophen 325 Mg Tablet PO 11/13/25 13:20 Q6H PRN Fever >100.4 and Pain 1-3 Clindamycin/Sodium Chloride 600 mg in 50 mls @ 100 mls/hr 10/14/25 15:18 10/16/25 13:51 Cleocin/Ns Ivpb IV 10/21/25 15:17 100 mls/hr Q8HR MINDY Administration Oxycodone/Acetaminophen 1 tab 10/14/25 13:21 10/16/25 10:25 Oxycodone/Apap 5/325 Tablet PO 10/19/25 13:20 1 tab Q6H PRN Administration PAIN SCALE 4-10(Mod-Sev Sennosides 1 tab 10/14/25 13:21 Senna Tablet PO 11/13/25 13:20 QDAY PRN constipation Protocol Sertraline HCl 50 mg 10/14/25 21:00 10/15/25 20:13 Sertraline Hcl 25 Mg Tablet PO 11/13/25 20:59 50 mg HS MINDY Administration Plan A 35-year-old female with past medical history of Hidradenitis suppurativa presents with left breast abscess x 3 weeks on antibiotics (Bactrim for 1 week, Rocephin for 4 days, and Keflex for 1 day) without improvement. Admitted for left breast abscess. History of abscess on the same breast 6 years ago, no antibiotics needed, abscess drained and resolved on its own. ?Reported purulent drainage from small abscess on areolar, no drainage on big abscess.? No new aggravation, trauma to the breast. # Left Breast Abscess # Hidradenitis suppurativa # History of left breast abscess Left breast abscess x 3 weeks on antibiotics (Bactrim for 1 week, Rocephin for 4 days, and Keflex for 1 day) without improvement. Breast US showed Retroareolar 3:00 hypoechoic mass, 3.8 x 1.9 x 4.1 cm. No leukocytosis. Remote fever of 101 at home. Had a reaction with Zosyn in ED, hives. Had a reaction with Dilaudid, hives. S/p I&D of left breast abscess 10/[address] Carson Plan: - Pending blood culture - Pending wound culture - Continue Clindamycin - Adjust antibiotics according to wound culture # Transaminitis LFT is elevated 10/16. Patient admitted to cholectomy in the past. Denied abdominal or RUQ or epigastric pain. Tolerated food without nausea/vomiting. Plan: - Continue monitor LFT - US gallbladder tomorrow if LFT continues to uptrend Health Maintenance: Code status: Full DVT prophylaxis: None GI prophylaxis: None Diet: NPO Herrera: None Lines: PIV Supplemental O2: None Disposition: MedSur bed Assessment and plan discussed with my attending physician Dr. Avery and Dr. Zurita (PGY-2). Dr. Bobby (PGY-1) ? cmo & president Attending Provider Attestation/Addendum I have seen and examined the patient. I was physically present for the ta portions of the services provided including history, physical exam, diagnosis, treatment plans and orders. I agree with assessment and plan of care as documented by residents. Even though this this note was carefully revised there may still be minor errors in professional development director due to voice recognition software. Micheline Avery MD
[2025-10-16] MEDS: MULTIVITAMINS TABLET 1 TAB PO (17:33)
[2025-10-16] MEDS: SERTRALINE HCL 25 MG TABLET 50 MG PO (21:06)
[2025-10-16] MEDS: ASCORBIC ACID 250 MG TABLET 500 MG PO (21:06)
[2025-10-17] VITALS: BP 93/57; PULSE 64; RESP 18; TEMP 35.8; O2SAT 95
[2025-10-17 04:00] VITALS: BP 117/75; PULSE 60; RESP 18; TEMP 36.3; O2SAT 94
[2025-10-17] MEDS: CLINDAMYCIN/NS 600 MG IVPB 600 MG/50 ML BAG 100 MG IV (05:30)
[2025-10-17 06:12] LABS: Basophils # (Auto) 0.1 Thou/mm3 (0.0-0.2); Basophils % (Auto) 0 % (0-2.5); Eosinophils # (Auto) 0.2 Thou/mm3 (0.0-0.5); Eosinophils % (Auto) 2 % (0-10); Hematocrit 35.3 % (36.0-46.0); Hemoglobin 11.3 g/dL (12.0-16.0); Immature Granulocytes Auto 0.05 Thou/mm3 (0.00-0.00); Lymphocytes # (Auto) 4.9 Thou/mm3 (1.0-4.8); Lymphocytes % (Auto) 41 % (10-50); Mean Corpuscular HGB Conc 32.0 g/dl (31.0-37.0); Mean Corpuscular Hemoglobin 29.9 pg (25.0-35.0); Mean Corpuscular Volume 93 fL (80-100); Monocytes # (Auto) 0.6 Thou/mm3 (0.0-0.8); Monocytes % (Auto) 5 % (0-12); Neutrophils # (Auto) 6.3 Thou/mm3 (1.8-7.7); Neutrophils % (Auto) 52 % (37-80); Nucleated Red Blood Cell # 0.00 Thou/mm3 (0.00-0.00); Nucleated Red Blood Cell % 0 /100 WBC (0); Platelet Count 256 Thou/mm3 (140-440); RDW Standard Deviation 44.9 fL (36.4-46.3); Red Blood Count 3.78 Miln/mm3 (4.00-5.20); White Blood Count 12.0 Thou/mm3 (3.6-11.0)
[2025-10-17 06:24] LABS: Alanine Aminotransferase 205 U/L (10-49); Albumin, Serum 3.9 gm/dL (3.5-5.0); Albumin/Globulin Ratio 1.4 (1.2-2.2); Alkaline Phosphatase 87 U/L (46-116); Anion Gap 9 (7-16); Aspartate Amino Transferase 59 U/L (0-34); BUN/Creatinine Ratio 19 Ratio (12-20); Bilirubin,Total 0.2 mg/dL (0.3-1.2); Blood Urea Nitrogen 15 mg/dL (9-23); Calcium 8.4 mg/dL (8.3-10.6); Calcium (Corrected) 8.5 mg/dL (8.5-10.1); Carbon Dioxide 25.4 mMol/L (20.0-31.0); Chloride 110 mMol/L (98-107); Creatinine (Component) 0.8 mg/dL (0.6-1.3); Estimated Creatinine Clearance 102.6 mL/min (>60); Globulin 2.7 gm/dL (2.3-3.5); Glucose 110 mg/dL (74-106); Osmolality,Calculated 288 (275-295); Potassium 4.8 mMol/L (3.4-5.1); Sodium 144 mMol/L (136-145); Total Protein 6.6 gm/dL (5.7-8.2); eGFR > 60 See Note
[2025-10-17 08:00] VITALS: BP 104/73; PULSE 80; RESP 17; TEMP 36.1; O2SAT 97
[2025-10-17 08:30] VITALS: PULSE 67; RESP 16; RESP 98
[2025-10-17] MEDS: ASCORBIC ACID 250 MG TABLET 500 MG PO (08:43)
[2025-10-17] MEDS: ZINC SULFATE 220 MG CAPSULE PO (08:43)
--- NOTE | 2025-10-17 11:26 | ESPR_ITS ---
Documentation for date of: 10/17/25 Subjective Subjective Brief History: History of present illness revealed that the patient developed this swelling about 3 weeks ago and it was diagnosed as an abscess and given antibiotics first with Bactrim and then with Keflex. For the past 3 days patient has been receiving intramuscular Rocephin. According to the patient it has slowed down the redness over the past. But the patient still has low-grade fever and pain and has started draining some of the nipple area. Patient denies having any such problem in the past except for years ago she had an infection on the left side of the breast which was treated with packing. She denies any major medical illness or immunosuppression. Patient has 3 children 100% is not lactating. 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 Narrative: Patient was seen today for a follow-up. The redness and cellulitis over the left breast has resolved. She has a packing over the wound in the left areolar region. Patient has no pain Exam Vital Signs Temp Pulse Resp BP Pulse Ox O2 Del Method O2 Flow Rate 97.0 F 67 16 104/73 97 Room Air 2 10/17/25 08:00 10/17/25 08:30 10/17/25 08:30 10/17/25 08:00 10/17/25 08:00 10/17/25 08:00 10/16/25 04:00 Assessment & Plan Assessment Additional comments: Patient: Resolving abscess following incision and drainage Plan Plan: Patient could be discharged today and I will be following her up in my office on October 26 PROCEDURES: Procedures Incision and drainage of the abscess left breast
[2025-10-17 11:57] VITALS: BP 125/64; PULSE 60; RESP 18; TEMP 36.2; O2SAT 98
--- NOTE | 2025-10-17 15:13 | ESDS_ITS ---
<Statement entered by Fransico Zurita MD - 10/17/25 16:27> Patient seen and examined at bedside. I discussed and supervised with the advertising intern physician who took care of this patient. I personally saw and examined the patient. I agree with most of the assessment and plan. Plan of care discussed with attending Dr. Avery. Fransico Zurita MD PGY-2 Planned Discharge Date 10/17/25 DS: Providers Provider Date of admission: 10/14/25 13:21 Primary care physician: BECKY Hwang (Mariam SARAH) Admitting Provider: Micheline Avery MD Attending Provider on Admission: Micheline Avery MD Consults: 10/14/25 17:10 Consult to General Surgery Stat Comment: Breast Abscess Consulting Provider: Cordell Vieira 10/16/25 14:03 Referral Nutritional Services Routine Comment: Left breast abscess Referral OP Wound Healing Dept Routine Comment: Instructions: Left breast abscess s/p I&D, hx of hidradenitis suppurativa Referral Wound Care Routine Comment: LEft breast abscess Attending Provider on DC: Micheline Avery MD Discharging Provider: Noreen Bobby MD DS: Diagnosis Problem List Completed Was Problem List Reviewed/Reconciled?: Yes Hospital Course Hospital Course Hospital course: A 35-year-old female with past medical history of Hidradenitis suppurativa presents with left breast abscess x 3 weeks on antibiotics (Bactrim for 1 week, Rocephin for 4 days, and Keflex for 1 day) without improvement. Admitted for left breast abscess. In ED, vital signs stable, afebrile, no leukocytosis. Breast ultrasound showed retroareolar at 3:00 hypoechoic mass, 3.8 x 1.9 x 4.1 cm abscess, given Rocephin 2 g. In hospital, surgery performed I&D of 11:00 and 3:00 abscesses. Blood culture and wound culture were negative. Patient improved with clindamycin and after I&D. Of note, patient had allergic reaction with Zosyn and Dilaudid during the hospital stay, required Benadryl. Patient is stable and medically clear for discharge. Plan to discharge with 10 more days of clindamycin after I&D. Return precaution given. # Left Breast Abscess # Hidradenitis suppurativa # History of left breast abscess # Transaminitis Instruction: You have been started on the following medications: - Clindamycin 450 mg three times daily for 10 days. Please continue all other medications as previously prescribed. Please follow up with your primary doctor in 7-10 days. Return to ED if you develop new or worsening symptoms. 1) Follow up with Dr. Mireles SundayOctober 26. Call [phone] to confirm appointment. [address] [facility] [address] [place]. 2) Follow up with [facility], [address] [place] [address]. Call [phone] for appointment. 3) Follow up with primary MD for dermatology referral related to hidradenitis suppurativa 4) Wound care to left breast: may shower than change your packing dressing once a day and as needed for falling off or saturating. Remove outer dressing and showering, allowing water to saturate wound to help remove packing strip. -Once out of the shower, make sure hands are clean washing with soap and water. -Cleanse and irrigate wound with wound cleanser spray than pat dry with gauze. -Wash hands or change your gloves -Insert packing strips into your wound to the deepest portion or until resistance is felt, filling in entire cavity than cover with foam or dry gauze dressing. If active bleeding occurs, apply tight dressing and return to MD or ER. ? Notify primary doctor or return to Emergency Room if any of the following: ? Fever above 100.6? F. ? Increased pain ? Increase swelling ? Red streaks around your wound ? Drainage becomes foul smelling or changes color ? The wound is larger or deeper ? The wound looks dried out or dark ? Bleeding that does not stop with holding pressure Health Maintenance: Code status: Full DVT prophylaxis: None GI prophylaxis: None Diet: NPO Herrera: None Lines: PIV Supplemental O2: None Disposition: [facility] bed Assessment and plan discussed with my attending physician Dr. Avery and Dr. Zurita (PGY-2). Dr. Bobby (PGY-1) ? co founder and president Status at Discharge Overall status at discharge: patient is back to baseline Time Spent with Patient Time attestation: Total time spent providing and/or coordinating discharge services: 36 minutes Time spent: Greater than 30 minutes Exam Vital Signs Temp Pulse Resp BP Pulse Ox O2 Del Method O2 Flow Rate 97.2 F 60 18 125/64 98 Room Air 2 10/17/25 11:57 10/17/25 11:57 10/17/25 11:57 10/17/25 11:57 10/17/25 11:57 10/17/25 11:57 10/16/25 04:00 Discharge Plan Plan Patient Disposition: HOME (Self Care) Patient condition on transfer: Stable Care Plan Goals: You have been started on the following medications: - Clindamycin 450 mg three times daily for 10 days. Please continue all other medications as previously prescribed. Please follow up with your primary doctor in 7-10 days. Return to ED if you develop new or worsening symptoms. 1) Follow up with Dr. Mireles SundayOctober 26. Call [phone] to confirm appointment. [address] [place], [place] [id number] [place]. 2) Follow up with [facility], [address] [place] [address]. Call [phone] for appointment. 3) Follow up with primary MD for dermatology referral related to hidradenitis suppurativa 4) Wound care to left breast: may shower than change your packing dressing once a day and as needed for falling off or saturating. Remove outer dressing and showering, allowing water to saturate wound to help remove packing strip. -Once out of the shower, make sure hands are clean washing with soap and water. -Cleanse and irrigate wound with wound cleanser spray than pat dry with gauze. -Wash hands or change your gloves -Insert packing strips into your wound to the deepest portion or until resi stance is felt, filling in entire cavity than cover with foam or dry gauze dressing. If active bleeding occurs, apply tight dressing and return to MD or ER. ? Notify primary doctor or return to Emergency Room if any of the following: ? Fever above 100.6? F. ? Increased pain ? Increase swelling ? Red streaks around your wound ? Drainage becomes foul smelling or changes color ? The wound is larger or deeper ? The wound looks dried out or dark ? Bleeding that does not stop with holding pressure Prescriptions/Referrals Prescriptions/Med Rec: New clindamycin HCl [Cleocin HCl] 150 mg capsule 450 mg PO TID 10 Days Qty: 90 0RF Continued ibuprofen 800 mg tablet 800 mg PO Q6H MDD 4 PRN (Reason: pain) Qty: 120 0RF sertraline 50 mg tablet 50 mg PO HS Patient Comments: TAKE 1 TABLET BY MOUTH EVERY DAY Referrals: Rashmi Castañeda FNP [Primary Care Provider] Patient/Caregiver Discharge Instructions Discharge Activity: activity as tolerated Education Materials: Nutrition for Wound Healing, Changing Dressing Dc, Discharge Instructions Wound ..., Preventing Surgical Site Infections Print Language: [place] Stand Alone Forms: Lila Award Info., Patient Portal Info Letter Discharge Order Discharge Orders: Discharge (Routine); Ordered 10/17/25 Ordered By: Fransico Zurita Quality Discharge Quality Measures VTE prophylaxis Attestestation Attestation I have seen and examined the patient. I was physically present for the ta portions of the services provided including history, physical exam, diagnosis, treatment plans and orders. I agree with assessment and plan of care as documented by residents. Even though this this note was carefully revised there may still be minor errors in insurance account executive due to voice recognition software. Micheline Avery MD
== END 2025-10-17 12:52 | disposition home or self-care (01) | DRG 585 ==
LOC: SERX 09:59 → SERHOLD 13:47 → S3SX 16:04
PROVIDERS: Surgery; Admitting Provider Student in an Organized Health Care Education/Training Program; Emergency Provider Family Medicine; PCP Nurse Practitioner Family; Visit Provider Student in an Organized Health Care Education/Training Program
PROC: 0H9U0ZX Drainage of Left Breast, Open Approach, Diagnostic (ICD-10-PCS; principal; 2025-10-15 14:00)
DX: N61.1 Abscess of the breast and nipple (principal); L73.2 Hidradenitis suppurativa; R74.01 Elevation of levels of liver transaminase levels; T36.0X5A Adverse effect of penicillins, initial encounter; Z88.8 Allergy status to other drugs, medicaments and biological substances
CPT/HCPCS: 36415; 76641; 76705; 80053; 80202; 83605; 84703; 85025; 85610; 85730; 87040; 87070; 87205; 96365; 96366; 96375; 99283; A4649; J0696; J1100; J1171; J1200; J2371; J2543; J2704; J2765; J3010; J3490; J7050; S0077; A9270; J0737; J1805